=== PATIENT | female | born 1965 | race Caucasian/White ===

== ENCOUNTER → 2017-08-06 | Outpatient (CLI) | payer OTHER | LOC: CIMAGING 07:14 | PROVIDERS: ATTEND Family Medicine | DX: Z12.31 Encounter for screening mammogram for malignant neoplasm of breast (principal) ==

== ENCOUNTER 2018-08-07 08:47 | Emergency (ER) | payer OTHER ==
[2018-08-07 09:09] VITALS: BP 150/93
--- NOTE | 2018-08-07 09:25 | EDPHY ---
H & P Time Seen by Provider: 08/07/18 09:04 HPI/ROS: HPI Continued diarrhea. Dark stool. 53-year-old female by private vehicle. This patient has a history of ongoing diarrhea for the last month. She describes this as watery. She has been seen by her primary care physician, Dr. Mcclelland, for this problem. She has had tried Pepto-Bismol without significant relief. She had a detailed stool analysis done on August 03. This was negative for any organisms. She denies any ill contacts. No recent foreign travel. She came to the emergency department because her stools were dark in color and she was told by the office of her primary care physician to come to the emergency department for any coffee ground like stool. She has not had a fever. She denies any gross rectal bleeding. No lightheadedness. She has not had any abdominal pain. She is post menopause. ROS: Constitutional: No fever, no chills. No weakness. Respiratory: No cough. No shortness of breath. Cardiac: No chest pain, no palpitations. Gastrointestinal: As above. No vomiting. Musculoskeletal: No back pain. No neck pain. No myalgias or arthralgias. Neurological: No headache. No focal weakness or altered sensation. Past medical history: MS. Hypothyroid. As above. Colonoscopy, about 1 year ago. 1 polyp removed. Social history: Nonsmoker. Here by herself. No alcohol. Physical Exam: General Appearance: Alert, no distress. This patient is responding to questions appropriately and in full sentences. This patient appears well- hydrated and well-nourished. Eyes: Pupils equal and round no pallor or injection. No lid edema, erythema or injection. Gastrointestinal: Abdomen is soft and nontender, no masses, bowel sounds normal. No focal tenderness at McBurney's point. No Sapp sign. Rectal exam: No gross blood. Greenish dark stool. Normal tone. Neurological: Motor sensory function is grossly intact. Cranial nerves are normal. Gait is normal. Skin: Warm and dry, no rashes. Musculoskeletal: Neck is supple and nontender. Extremities are symmetrical. All joints range without pain or impingement. Psychiatric: No agitation. No depression. Database: EKG: Imaging: Procedures: Emergency department course: Triage vital signs reviewed. She is mildly hypertensive. Triage vital signs are otherwise normal. Stool guaiac testing ordered. The patient's medical records were reviewed. She had extensive stool studies/GI pathogen panel which were all negative resulted August 03 of this year. Stool guaiac testing negative. 9:30 p.m., the patient was re-evaluated, resting comfortably at this time. I explained the results of her stool guaiac test. Gastrointestinal hemorrhage is unlikely. This patient appears well. I feel she does not require further emergency department workup and evaluation. I will have her follow up with Gastroenterology or primary care physician for evaluation and treatment of her diarrhea. Repeat abdominal exam she is soft, nontender nondistended. She feels comfortable being discharged. Return to emergency department precautions reviewed with her. All of her questions were answered. She was discharged from the emergency department in good condition. Differential Diagnosis: The differential diagnosis on this patient includes but is not limited to irritable bowel syndrome, inflammatory bowel syndrome, food-borne illness, food allergy. Infectious etiology, gastrointestinal bleeding unlikely. This represents a partial list of diagnoses considered. These considerations are based on history, physical exam, past history, reassessment and diagnostic testing. Smoking Status: Never smoked Constitutional: Initial Vital Signs Temperature (C) 36.9 C 08/07/18 09:03 Heart Rate 72 08/07/18 09:03 Respiratory Rate 16 08/07/18 09:03 Blood Pressure 150/93 H 08/07/18 09:03 O2 Sat (%) 94 08/07/18 09:03 O2 Delivery Mode Room Air Allergies/Adverse Reactions: No Known Allergies Allergy (Verified 08/07/18 09:09) Home Medications: Medication Instructions Recorded Bystolic 05/24/15 Synthroid 05/24/15 Tecfidera 08/07/18 Medical Decision Making - Data Points Point of Care Test Results: Occult Blood Occult Blood Collection Date 08/07/18 Occult Blood Collection Time 09:24 Occult Blood Result Negative/Negative Departure - Departure Disposition: Home, Routine, Self-Care Clinical Impression: Diarrhea Condition: Good Instructions: Chronic Diarrhea (ED) Additional Instructions: Read and follow provided instructions. Follow-up with your primary care physician or gastroenterology this week for re- evaluation of your ongoing diarrhea. Drink plenty of fluids and keep yourself well hydrated. Return to the emergency department for worsening symptoms, fever, abdominal pain , rectal bleeding, vomiting or other serious concerns. Referrals: Tyra Mcclelland MD [Primary Care Provider] - As per Instructions Norberto Abad MD [Medical Doctor] - As per Instructions
== END 2018-08-07 09:35 | disposition home or self-care (01) ==
LOC: CED 08:47
DX: R19.7 Diarrhea, unspecified (principal); E03.9 Hypothyroidism, unspecified; Z78.0 Asymptomatic menopausal state
CPT/HCPCS: 99284-ER

== ENCOUNTER → 2018-08-12 | Outpatient (CLI) | payer OTHER | LOC: CIMAGING 08:35 | PROVIDERS: ATTEND Family Medicine | DX: Z12.31 Encounter for screening mammogram for malignant neoplasm of breast (principal) ==

== ENCOUNTER → 2018-09-02 | Outpatient (CLI) | payer OTHER ==
[~2018-09-02] MED LIST: IOPAMIDOL (ISOVUE-300) 100 ML BTL ONE
== END ==
LOC: CIMAGING 09:59
PROVIDERS: ATTEND Physician Assistant
DX: R19.7 Diarrhea, unspecified (principal); K57.30 Diverticulosis of large intestine without perforation or abscess without bleeding; K80.20 Calculus of gallbladder without cholecystitis without obstruction
CPT/HCPCS: 74177; Q9967